=== PATIENT | male | born 1960 | race Caucasian/White ===

== ENCOUNTER 2024-07-21 19:15 | Emergency (ER) | payer OTHER ==
[~2024-07-21] VITALS: Ht 193 cm; Wt 145.5 kg
[2024-07-21 19:25] VITALS: TEMP 98.8
[2024-07-21] MEDS ORDERED: Folic Acid 1 MG TAB PO ONE (20:00)
[2024-07-21] MEDS ORDERED: LR 1,000 ML IV ONE (20:00)
[2024-07-21] MEDS ORDERED: Thiamine 100 MG TAB PO ONE (20:00)
[2024-07-21] MEDS ORDERED: Magnesium Sulfate 4% 50 ML IV ONE (20:00)
[2024-07-21 20:07] LABS: BASO # 0.1 K/mm3 (0.0-0.2); EOS # 0.2 K/mm3 (0.0-0.7); EOS % 2.3 % (0.0-4.0); GRAN % 61.4 % (42.2-75.2); HEMATOCRIT 44.7 % (42.0-52.0); HEMOGLOBIN 15.2 g/dl (13.5-18.0); LYMPH # 2.1 K/mm3 (1.2-3.4); MEAN CELL VOLUME 93 fl (80.0-100.0); MEAN CORPUSCULAR HEMOGLOBIN 32 pg (27-31); MEAN CORPUSCULAR HGB CONC 34 g/dl (33.0-37.0); MEAN PLATELET VOLUME 8.4 fl (7.4-10.4); MONO # 0.7 K/mm3 (0.1-0.6); MONO % 8.3 % (1.7-9.3); PLATELET COUNT 298 K/mm3 (130-400); RED BLOOD COUNT 4.79 M/mm3 (4.20-5.60); REDCELL DISTRIBUTION WIDTH-CV 13.3 % (11.5-14.5)
[2024-07-21 20:29] LABS: ALBUMIN 3.9 g/dL (3.4-4.8); CALCIUM 8.5 mg/dL (8.4-10.2); CREATININE, serum 1.08 mg/dL (0.72-1.25); POTASSIUM 3.7 mEq/L (3.5-4.5)
[2024-07-21 21:30] LABS: BILIRUBIN,TOTAL 0.8 mg/dL (0.2-1.2); MAGNESIUM 2.3 mg/dL (1.6-2.6)
[2024-07-21 22:21] VITALS: BP 105/68; PULSE 78
== END 2024-07-21 22:26 | disposition home or self-care (01) ==
LOC: COL.ER 19:15
PROVIDERS: Emergency Medicine
DX: F10.129 Alcohol abuse with intoxication, unspecified (principal); R42 Dizziness and giddiness; T42.4X5A Adverse effect of benzodiazepines, initial encounter; Y90.7 Blood alcohol level of 200-239 mg/100 ml
CPT/HCPCS: J3475; J7120